=== PATIENT | male | born 1985 | race Caucasian/White ===

== ENCOUNTER 2017-06-07 05:56 | Day surgery (SDC) | payer OTHER ==
[2017-06-04 12:57] VITALS: BMI 27.3
[2017-06-07] MEDS ORDERED: MEPIVACAINE HCL/PF 1% 30 ML VIAL ONE (07:29)
[2017-06-07] MEDS ORDERED: DEXAMETHASONE SOD PHOSPHATE/PF 10 MG/ML SDV ONE (07:29)
[2017-06-07] MEDS ORDERED: MIDAZOLAM HCL 2 MG/2 ML SINGLE DOSE VIAL ONE (07:29)
[2017-06-07] MEDS ORDERED: BUPIVACAINE HCL/PF (5 MG/ML) 30 ML VIAL IJ ONE (07:30)
[2017-06-07] MEDS ORDERED: PROPOFOL 20 ML ONE ×2 (07:55)
[2017-06-07] MEDS ORDERED: SUCCINYLCHOLINE CHLORIDE 200 MG/10 ML VIAL ONE (07:57)
[2017-06-07] MEDS ORDERED: oxyCODONE HCL 5 MG TABLET PO PRN ×2 (09:49)
[2017-06-07] MEDS ORDERED: ONDANSETRON 4 MG/2 ML VIAL IVPUSH PRN (09:49)
[2017-06-07] MEDS ORDERED: PROMETHAZINE HCL 25 MG/1 ML VIAL IVPUSH PRN (09:49)
[2017-06-07] MEDS ORDERED: LACTATED RINGERS SOLUTION 1,000 ML IV SCH (10:00)
--- NOTE | 2017-06-07 10:01 | SURG ---
Surgery Farm Operations Manager Note Farm Operations Manager: Benjamín Bob PA-C Date of Service: 06/07/17 Diagnosis: Left pectoral major muscle rupture Procedure: Open repair left pectoral major repair with anchors x2 I was present for the entirety of the operative procedure. For further detail, please refer to operative report. Visit type - Case Type Case Type: Scheduled Admission - New patient This patient is new to me today: Yes Date on this admission: 06/07/17
--- NOTE | 2017-06-07 10:36 | OP ---
DATE OF OPERATION: 06/07/2017 PREOPERATIVE DIAGNOSIS: Left pectoralis major rupture. POSTOPERATIVE DIAGNOSIS: Left pectoralis major rupture. PROCEDURE: Left pectoralis major repair. SURGEON: Freddie Saleem MD SAFE AND VAULT SERVICE MECHANIC: LYNDON Ewing, whose skillful assistance was necessary for the safe and timely performance of this procedure. Mr. Bob was able to provide limb positioning, retraction, assist in suturing of the free end of the tendon, as well as the insertion of orthopedic fixation hardware. ANESTHESIA: Regional plus general. POSTOPERATIVE CONDITION: Stable. COMPLICATIONS: None. IMPLANTS: Arthrex buttons x2. INDICATIONS: This is a pleasant gentleman who had suffered an injury to his chest wall. He was found to have a pectoralis major rupture. Treatment options including nonoperative care with permanent loss of muscle tone and adduction strength were discussed. We discussed operative management, which should restore the normal contours as well as provide scientology of the pectoralis major function and return of strength. We discussed surgical risks in detail including bleeding, infection, neurovascular injury, need for further surgery, postoperative pain and stiffness, fracture about the buttons, failure of the tendon to heal, or re-rupture. We discussed medical risks such as heart attack, stroke, DVT, PE, and . I addressed all the patients questions. He voiced understanding and elected to proceed. DESCRIPTION OF PROCEDURE: The patient was brought to the operating room after administration of a regional block in the preoperative holding area. He was administered general anesthesia. He was placed into the beach-chair position, careful to pad all bony prominences. The right upper extremity was then prepped and draped in the usual sterile fashion. A preoperative dose of antibiotics was given, and the usual time-out procedure was performed. At this point, an incision was planned out over the proximal portion of the axillary fold. This was carried down through skin to subcutaneous tissue. Blunt spreading at this point was used to expose the pectoral fascia. The pectoral fascia was then bluntly spread demonstrating a seroma. Within the seroma, the free end of the pectoralis tendon was identified and retrieved using an Allis clamp. Utilizing finger dissection, both anterior and posterior to the pectoralis major, the muscle belly was freed up of any surrounding adhesions. The tendon was now whipstitched, entering from the lateral aspect and running the suture in a locking suture fashion along the posterior aspect where the tendon was most thick. Superior whipstitch was placed as well as an inferior whipstitch using FiberTape. Excellent purchase was achieved with both sutures. Attention was now turned towards the humerus. A Hohmann retractor was placed being very careful to maintain constant contact with the humeral cortex surface to expose the insertion site just lateral to the biceps. A curette was used to debride the surface of any soft tissue and was then used to decorticate the surface until bleeding bone was seen throughout the insertion site. Two 3.2-mm drill holes were then created in the superior and inferior aspects of the footprints. The previously passed sutures were now loaded onto the 3.2-mm buttons. The buttons were then inserted and toggled to seat within the humeral canal. The sutures were now toggled to draw the pectoralis back to its anatomic insertion. They were then tied securing the pectoralis. Inspection of the repair demonstrated good contact with the footprint site. A reinforcing suture was passed utilizing the FiberTape going back from their tied position back through the more medial aspect of the tendon and then tied, as well. At this point, the area was copiously irrigated. The deep tissue was closed utilizing 4-0 Vicryl. The subcutaneous tissues was approximated using 4-0 Vicryl. The skin was closed using interrupted vertical mattress 4-0 nylon suture. Sterile dressings were placed. The patient was extubated and transferred to the recovery room in stable condition. Heavenly STANFORD/[id number]
[2017-06-07 10:59] VITALS: TEMP 97.8
[2017-06-07 11:18] VITALS: BP 123/83; PULSE 71
== END 2017-06-07 11:15 | disposition home or self-care (01) ==
LOC: FASU 05:56
PROVIDERS: ATTEND Orthopaedic Surgery Sports Medicine
PROC: 0XQ90ZZ Repair Left Upper Arm, Open Approach (ICD-10-PCS; principal; 2017-06-07 08:25)
DX: S46.812A Strain of other muscles, fascia and tendons at shoulder and upper arm level, left arm, initial encounter (principal); X58.XXXA Exposure to other specified factors, initial encounter; Y93.9 Activity, unspecified; Y92.9 Unspecified place or not applicable
CPT/HCPCS: 94760